=== PATIENT | female | born 1955 | race Caucasian/White ===

== ENCOUNTER 2020-07-09 06:47 | Day surgery (SDC) | payer MEDICARE, OTHER, SELFPAY ==
[2020-07-07 13:06] VITALS: BMI 23.8
--- NOTE | 2020-07-08 08:35 | HO.ANESPROP2 ---
Documented by User: Ivy Malhotra 07/08/20 08:35 HPI - Anesthesia Eval Consult details Narrative: 65yo F for Colonoscopy PMFSH Past Medical History Medical History Anxiety and depression Asthma Barretts esophagus Hyperlipemia Osteoporosis Surgical History Surgical History H/O colonoscopy History of History of esophagogastroduodenoscopy (EGD) Hx of appendectomy Hx of cholecystectomy Hx of hysterectomy Social History Social History Smoking Status: Former smoker Smoking Quit Date: 30 yrs ago Second Hand Smoke Exposure: No Use of substances other than those prescribed or required for medical reasons: No Have you been hit, kicked, punched, or otherwise hurt by someone within the past year? If so, by whom?: No Advance Directives: No Advance Directives Information Provided: No Advance Directives on File: No Meds Allergies Allergy/AdvReac Type Severity Reaction Status Date / Time simvastatin [From Zocor] Allergy muscle Verified 07/07/20 13:03 aches, flu like symptoms tetanus immune globulin Allergy Rash, Fever Verified 07/07/20 13:03 Home Medications Medication Instructions Recorded Confirmed Type albuterol sulfate 2 puff PO Q4H PRN 07/07/20 07/07/20 History cyclosporine [Restasis] 1 drp OPHTHALMIC (EYE) Q12H 07/07/20 07/07/20 History fluticasone furoate-vilanterol 1 puff PO DAILY 07/07/20 07/07/20 History [Breo Ellipta] ibuprofen [Advil] 200 mg PO Q6H PRN 07/07/20 07/07/20 History multivitamin 1 tab PO DAILY 07/07/20 07/07/20 History omeprazole 1 cap PO DAILY PRN 07/07/20 07/07/20 History sertraline 1 tab PO DAILY 07/07/20 07/07/20 History Exam Exam Date and Time: July 08, 2020 0835 Height,Weight and Vital Signs: Height 5 ft 7 in Weight 68.946 kg Assessment and Plan Assessment Anesthesia Assessment: Chart Reviewed Documented by User: Sariah Painting 07/09/20 08:08 [facility] Past Medical History Medical History Anxiety and depression Asthma Barretts esophagus Hyperlipemia Osteoporosis Surgical History Surgical History H/O colonoscopy History of History of esophagogastroduodenoscopy (EGD) Hx of appendectomy Hx of cholecystectomy Hx of hysterectomy Social History Social History Smoking Status: Former smoker Smoking Quit Date: 30 yrs ago Second Hand Smoke Exposure: No Use of substances other than those prescribed or required for medical reasons: No Have you been hit, kicked, punched, or otherwise hurt by someone within the past year? If so, by whom?: No Advance Directives: No Advance Directives Information Provided: No Advance Directives on File: No Meds Allergies Allergy/AdvReac Type Severity Reaction Status Date / Time simvastatin [From Zocor] Allergy muscle Verified 07/07/20 13:03 aches, flu like symptoms tetanus immune globulin Allergy Rash, Fever Verified 07/07/20 13:03 Home Medications Medication Instructions Recorded Confirmed Type albuterol sulfate 2 puff PO Q4H PRN 07/07/20 07/07/20 History cyclosporine [Restasis] 1 drp OPHTHALMIC (EYE) Q12H 07/07/20 07/07/20 History fluticasone furoate-vilanterol 1 puff PO DAILY 07/07/20 07/07/20 History [Breo Ellipta] ibuprofen [Advil] 200 mg PO Q6H PRN 07/07/20 07/07/20 History multivitamin 1 tab PO DAILY 07/07/20 07/07/20 History omeprazole 1 cap PO DAILY PRN 07/07/20 07/07/20 History sertraline 1 tab PO DAILY 07/07/20 07/07/20 History Exam Airway Mallampati Class: I TM Dist: >3cm Neck ROM: Full Denture: Upper Partial: Lower Loose/Missing/Broken Teeth: No Heart: RRR Lungs: CTA Assessment and Plan Assessment Anesthesia Assessment: Anesthesia Plan Discussed and Chart Reviewed Final Anesthetic Review NPO: Yes ASA Class: II Final Preanesthetic Review: Meds/Allgs Chart Reviewed, Consent Obtained/Reviewed and Anes Risks/Benef Reviewed Patient Risk: Intermediate Procedure Risk: Low Anesthetic Plan Anesthetic Plan: MAC: Disposition: Standard PACU
[2020-07-09 07:01] VITALS: BP 125/71; PULSE 70; RESP 18; TEMP 36.6; O2SAT 95
[2020-07-09] MEDS: Lactated Ringers 1,000 ML 100 ML IVCONT (07:13)
--- NOTE | 2020-07-09 08:01 | MHC.SHP ---
Pre-Procedural Eval Section A The patient is an INPATIENT: No Changes since office visit: No Cold of Flu in the past 2 weeks, No New Medical Problems, No Changes in Medication and No Patient answered all questions The History & Physical has been completed within 30 days and I have reviewed it.: Yes Section B Chief Complaint: screening Allergies: Allergies Allergy/AdvReac Type Severity Reaction Status Date / Time simvastatin [From Zocor] Allergy muscle Verified 07/07/20 13:03 aches, flu like symptoms tetanus immune globulin Allergy Rash, Fever Verified 07/07/20 13:03 Plan Patient has been examined and remains a candidate for the planned procedure
--- NOTE | 2020-07-09 08:34 | PM.OP ---
Brief Operative Note Date of procedure: 07/09/20 Pre-op diagnosis: screening Post-op diagnosis: same Procedure: colonoscopy Surgeon: Yoseph Suarez Anesthesia: MAC Estimated blood loss (mL): 0 Pathology: none sent Condition: stable Disposition: PACU
[2020-07-09 08:46] VITALS: BP 109/59; PULSE 66; RESP 16; TEMP 35.9; O2SAT 99
[2020-07-09 08:53] VITALS: BP 111/61; PULSE 60; RESP 16; O2SAT 97
--- NOTE | 2020-07-09 09:10 | OP_ITS ---
SURGEON: Yoseph Suarez MD INDICATIONS: Colon cancer screening and prior history of adenomatous colon polyps. PREOPERATIVE DIAGNOSIS: POSTOPERATIVE DIAGNOSIS: PROCEDURE PERFORMED: ESTIMATED BLOOD LOSS: COMPLICATIONS: ANESTHESIA: ASSISTANTS: SPECIMENS: PROCEDURE: Colonoscopy to the terminal ileum. MEDICATIONS: Monitored anesthesia care. DESCRIPTION OF PROCEDURE: History and physical performed. The risks and benefits of the procedure were explained to the patient. Informed consent was obtained. The patient was placed in the left lateral decubitus position. A digital rectal exam was performed and was found to be normal. The Olympus pediatric video colonoscope was introduced into the rectum and advanced to the cecum without difficulty. The cecum was identified by transillumination, palpation, and identification of ileocecal valve. Examination was performed. The scope was removed. She tolerated the procedure well and was taken to recovery area in stable condition. FINDINGS: The terminal ileum was normal. The visualized colonic mucosa was within normal limits without evidence of masses or ulcers. No polyps were identified. There was some liquid and undigested food limiting the sensitivity examination for detection of small polyps. This was washed and suctioned. No polyps were identified. Retroflexed examination was normal. IMPRESSION: Negative screening colonoscopy. RECOMMENDATION: 1. Follow up as needed. 2. Repeat colonoscopy is recommended in 5 years due to prior history. MD RIP Moya/JB / [id number]
--- NOTE | 2020-07-09 09:26 | HO.POSTANES ---
Post Anesthesia Evaluation Post Anesthesia Evaluation Vital Signs: Vital Signs Temp Pulse Resp BP Pulse Ox 07/09/20 08:53 97.9 F 60 16 111/61 97 07/09/20 08:46 96.6 F L 66 16 109/59 L 99 07/09/20 07:01 97.9 F 70 18 125/71 95 Anesthesia: Monitored Mental Status: Awake Pain Control: Satisfactory Nausea/Vomiting: None Hydration: Adequate Anesthesia-Related Issues: No Anes. Related Issues
== END 2020-07-09 09:46 | disposition home or self-care (01) ==
PROVIDERS: PCP Internal Medicine; Visit Provider Internal Medicine Gastroenterology
PROC: 0DJD8ZZ Inspection of Lower Intestinal Tract, Via Natural or Artificial Opening Endoscopic (ICD-10-PCS; CPT 45378; principal; 2020-07-09 08:10)
DX: Z12.11 Encounter for screening for malignant neoplasm of colon (principal); Z80.0 Family history of malignant neoplasm of digestive organs; Z86.010 Personal history of colon polyps; K22.70 Barrett's esophagus without dysplasia; K21.9 Gastro-esophageal reflux disease without esophagitis; J45.909 Unspecified asthma, uncomplicated; E78.5 Hyperlipidemia, unspecified; M81.0 Age-related osteoporosis without current pathological fracture; Z79.899 Other long term (current) drug therapy; Z79.51 Long term (current) use of inhaled steroids; Z90.49 Acquired absence of other specified parts of digestive tract; Z87.891 Personal history of nicotine dependence; Z79.1 Long term (current) use of non-steroidal anti-inflammatories (NSAID); Z88.8 Allergy status to other drugs, medicaments and biological substances
CPT/HCPCS: G0105

== ENCOUNTER 2024-10-14 09:27 | Day surgery (SDC) | payer MEDICARE, OTHER, SELFPAY ==
--- NOTE | 2024-10-13 09:06 | P.CONAN_ITS ---
Documented by User: Ivy Malhotra NP 10/13/24 09:06 HPI - Anesthesia Eval Consult details Narrative: 69yo F for Upper Endoscopy and Colonoscopy PMFSH Past Medical History Medical History Anxiety and depression Asthma Barretts esophagus Hyperlipemia Osteoporosis Surgical History Surgical History H/O colonoscopy History of History of esophagogastroduodenoscopy (EGD) Hx of appendectomy Hx of cholecystectomy Hx of hysterectomy Social History Social History Are you a primary sub acute care nurse to a significant other at home: No Do you presently have visiting nurse or other home services: No Patient Tobacco Use Status: Former Tobacco user Second Hand Smoke Exposure: No Have you been hit, kicked, punched, or otherwise hurt by someone within the past year? If so, by whom?: No Are you DNR?: No Advance Directives: No Advance Directives Information Provided: Yes Recently lost weight without trying: No Nutrition Risks: No Nutritional Risk Meds Allergies Allergy/AdvReac Type Severity Reaction Status Date / Time simvastatin [From Zocor] Allergy muscle Verified 10/14/24 10:27 aches, flu like symptoms tetanus immune globulin Allergy Rash, Fever Verified 10/14/24 10:27 Home Medications ?Medication ?Instructions ?Recorded ?Confirmed ?Last Taken ?Type albuterol sulfate 90 mcg/actuation 2 puff PO Q4H PRN Wheezing 07/07/20 10/14/24 Unknown History aerosol inhaler cyclosporine 0.05 % eye drops in a 1 drp ophthalmic (eye) Q12H 07/07/20 10/14/24 Unknown History dropperette (Restasis) fluticasone furoate 200 1 puff PO DAILY 07/07/20 10/14/24 07/09/20 History mcg-vilanterol 25 mcg/dose inhalation powder (Breo Ellipta) ibuprofen 200 mg tablet (Advil) 200 mg PO Q6H PRN Pain 07/07/20 10/14/24 Unknown History multivitamin 1 tab PO DAILY 07/07/20 10/14/24 Unknown History omeprazole 20 mg capsule,delayed 1 cap PO DAILY PRN acid reflux 07/07/20 10/14/24 Unknown History release sertraline 100 mg tablet 1 tab PO DAILY 07/07/20 10/14/24 Unknown History Assessment and Plan Assessment Anesthesia Assessment: Chart Reviewed Documented by User: Jaden Miner MD 10/14/24 11:55 PMF Past Medical History Medical History Anxiety and depression Asthma Barretts esophagus Hyperlipemia Osteoporosis Family History Family history of problems with anesthesia: No Surgical History Surgical History H/O colonoscopy History of History of esophagogastroduodenoscopy (EGD) Hx of appendectomy Hx of cholecystectomy Hx of hysterectomy History of Problems with Anesthesia: No Social History Social History Are you a primary sub acute care nurse to a significant other at home: No Do you presently have visiting nurse or other home services: No Patient Tobacco Use Status: Former Tobacco user Second Hand Smoke Exposure: No Have you been hit, kicked, punched, or otherwise hurt by someone within the past year? If so, by whom?: No Are you DNR?: No Advance Directives: No Advance Directives Information Provided: Yes Recently lost weight without trying: No Nutrition Risks: No Nutritional Risk Meds Allergies Allergy/AdvReac Type Severity Reaction Status Date / Time simvastatin [From Zocor] Allergy muscle Verified 10/14/24 10:27 aches, flu like symptoms tetanus immune globulin Allergy Rash, Fever Verified 10/14/24 10:27 Home Medications ?Medication ?Instructions ?Recorded ?Confirmed ?Last Taken ?Type albuterol sulfate 90 mcg/actuation 2 puff PO Q4H PRN Wheezing 07/07/20 10/14/24 Unknown History aerosol inhaler cyclosporine 0.05 % eye drops in a 1 drp ophthalmic (eye) Q12H 07/07/20 10/14/24 Unknown History dropperette (Restasis) fluticasone furoate 200 1 puff PO DAILY 07/07/20 10/14/24 07/09/20 History mcg-vilanterol 25 mcg/dose inhalation powder (Breo Ellipta) ibuprofen 200 mg tablet (Advil) 200 mg PO Q6H PRN Pain 07/07/20 10/14/24 Unknown History multivitamin 1 tab PO DAILY 07/07/20 10/14/24 Unknown History omeprazole 20 mg capsule,delayed 1 cap PO DAILY PRN acid reflux 07/07/20 10/14/24 Unknown History release sertraline 100 mg tablet 1 tab PO DAILY 07/07/20 10/14/24 Unknown History Exam Airway Mallampati Class: II TM Dist: >3cm Neck ROM: Full Denture: Upper and Lower Heart: ok Lungs: ok Assessment and Plan Assessment Anesthesia Assessment: Anesthesia Plan Discussed Final Anesthetic Review Family History of Problems with Anesthesia: No History of Problems with Anesthesia: No NPO: Yes ASA Class: II Final Preanesthetic Review: No Changes in Pt Med Stat, Meds/Allgs Chart Reviewed, Consent Obtained/Reviewed and Anes Risks/Benef Reviewed Patient Risk: Low Procedure Risk: Intermediate Anesthetic Plan Anesthetic Plan: Agree w/ Assess. and Plan and TIVA Disposition: Standard PACU
--- OUTSIDE RECORDS SUMMARY | 2024-10-14 09:57 | XMS_ITS | Data Portability ---
Author Organization [place] [facility], [facility] Address [address] [place] [id number] Care Team Providers Care Master Certified Rv Technician Name Role Phone RENETTA LYNCH Primary Care Provider Assessment Encounter Date Assessment Date Assessment LastModified by Organization Details LastModified Time 11/21/2021 11/21/2021 Overview/History : 66 yo f new to and this provider with a PMH of asthma and anxiety presents with new onset of chills and and vomiting 3 days ago for 1 day the following day she began to feel better but she started with nausea and diarrhea. She has been able to tolerate fluids and crackers overall. Today she has a headache, body aches and nausea. Negative rapid COVID 19 test today. Using Tylenol for headache and body aches with good effect. Exam: VSS Constitutional: healthy-appearin g, well-nourished, well-developed. NAD Psychiatric: Good judgement. Active and alert, normal mood, normal affect Head: normocephalic, atraumatic Eyes: onjunctivae is non-injected, no discharge, no pallor. Sclerae is non-icteric. Peripheral vision grossly intact, acuity grossly intact ENMT: Ears: no lesions on external ear, EACs clear, TMs clear Nose: no lesions on external nose, nares patent, nasal passages clear, no sinus tenderness, no nasal discharge. Oropharynx: moist mucous membranes, no erythema, no exudates, tonsils not enlarged. Pulmonary: No dyspnea. LSCTA no wheezing, no rales/crackles, no rhonchi Cardiovascular: RRR, normal S1, normal S2, no murmurs, no rubs, no gallops Gastrointestinal : bowel sounds normal. Abdomen is soft, non-distended, no tenderness, no guarding, no rebound tenderness, no masses Musculoskeletal: Normal tone. Normal movement of all extremities, no contractures, no bony abnormalities, no malalignment. No cyanosis, no edema Neurologic: A&O x 3 recent and remote memory intact. Cranial nerves II-XII Intact, normal speech without dysarthria. 5/5 gross motor strength Skin: no rash, no lesions, good turgor, no jaundice DDx considered, but not limited to: viral gastroenteritis, bowel obstruction, cholecystitis, COVID-19 This patient presents with symptoms consistent with viral gastroenteritis. PE does is not reveal any pain or tenderness of the abdomen thus there is low suspicion for bowel obstruction or cholecystitis at this time. Her symptoms may be attributed COVID 19 and will collect a swab for PCR testing since she performed a home test today that was negative. She is able to tolerate PO fluids and is most bothered by continued nausea. Will plan to treat nausea and have patient f/u with PCP. Work-up: COVID-19 PCR -PENDING Plan/Discussion: Advised patient of new Rx ondansetron 2 tabs three times a day as needed for nausea first dose given on scene. Advised patient a provider will provide COVID-19 results when complete. Advised patient to follow up with PCP in 1-2 days. Advised patient if unable to tolerate fluids contact or be evaluated in the ER. Proper Personal Protective Equipment (PPE), including gloves, eye protection and masks were donned and doffed appropriately and all equipment cleaned using approved technique with germicidal disposable wipes prior to and after care of this patient according to [facility]'s infection prevention protocols. [email or web address] Not available 11/22/2021 01:02:29 Plan of Treatment Reminders Order Date Submit Date Provider Last Modified By Organization Details Last Modified Time Details Appointments None recorded. Lab unlisted lab - covid-19 (novel coronavirus ) PCR 2021 [address] [place] [facility], [address] [place], [address], 15:20:21 Referral None recorded. Procedures None recorded. Surgeries None recorded. Imaging None recorded. Medication Orders ondansetron 4 mg disintegrat ing tablet 2021 022 [id number], [address] [place], [address], 00:09:57 Patient TargetsNo targets recorded. Patient Instructions Encounter Date Encounter Id Patient Instructions Last Modified By Organization Details Last Modified Time 11/21/2021 [id number] Acute Nausea and Vomiting/Diarrhea BASIC INFORMATION Acute nausea and vomiting often start suddenly, worsen quickly, and last a few hours to 24 hours. Nausea and vomiting most often occur together, although they can occur alone. Cases of acute nausea and vomiting are often from gastrointestinal viruses such as norovirus, rotavirus and influenza. Less often it can be caused by toxins released from food that ? goes bad? as well as some types of bacteria and parasites. Diarrhea can also occur. Your nurse practitioner will conduct a careful history to help determine if you have one of the more serious causes. The cause of your nausea and vomiting may be unknown. INSTRUCTIONS Medicines: 1) Anti-nausea: You may have been given a prescription for an anti nausea medicine such as Zofran, Phenergan or Compazine. These can be used every 6-8 hours to help prevent nausea and vomiting. They can make you sleepy, so do not drive after taking them. Be sure to read all of the drug information from the pharmacy. 2) Tylenol: Low grade fever is common with acute nausea and vomiting. You may use Tylenol, per the recommended dosing on the label, to help control fever. If you have liver disease, do not use Tylenol. Ask your TRAINING TECHNICIAN how to address fever if you are concerned about Tylenol use. 3) Anti-diarrheal medicines: These are available [id number]-[id number], but in some cases are not recommended and can even worsen some cases of intestinal problems. Ask your TRAINING TECHNICIAN if you should use them. In children under 12, the only anti-diarrheal that should be considered is Kaopectate. Diet: 1) For the next 12-24 hours, take clear liquids only. No dairy and no caffeinated beverages. After you have not vomited for a complete hour (either with or without the help of the anti-nausea medicine), begin by taking one tablespoon of clear liquid every 15 minutes for one hour. If you are able to tolerate this, you may increase the amount to 2 tablespoons every hour for the next 2 hours. 2) Clear liquids such as gatorade, pedialyte or broth are recommended because of the electrolytes and sugars that will help replenish the losses from vomiting and diarrhea. 3) If you are able to tolerate clear liquids as instructed above, you may begin to take a bland diet. Plain pasta/noodles or toast are suggestions. If you have had diarrhea, bananas, rice and applesauce are suggested as these can help make the stools more solid. Avoid greasy, fatty or fried foods FOLLOW UP You should make an appointment to see your primary care provider within 24 hours or sooner for worsening condition as described below. If you do not have a primary care doctor, you should follow up with one of the PCP suggestions from [facility]. SEEK CARE IMMEDIATELY IF: 1) You are still unable to tolerate any oral intake after 24 hours 2) You have blood in your vomit or stool 3) You develop severe abdominal pain that does not go away after an episode of vomiting or diarrhea 4) You have severe dizziness, heart palpitations or are passing out 5) You develop severe muscle cramps or weakness 6) You have not made urine in over 24 hours If you develop any new or worsening symptoms and need after hours care, please go to nearest ER and/or call 911. If you have additional concerns or develop a change in your condition between 8am-10pm, please call [facility] at [phone] to help navigate your care. [email or web address] Not available 11/21/2021 16:24:12 Reason for Referral None Reported. Results Created Date Observation Date Name Description Value Unit Range Abnormal Flag Note LastModifiedBy Organization Detail LastModifiedTime 11/22/19 22 11/22/2021 COVID -19 (NOVE L CORON AVIRU S) PCR covid-19 PCR result (neg) NEGAT BEBE 2019- novel Coron aviru s (2018 -nCoV ) not detec mikey by RT-PC R. Note: If clini raj suspi cion for COVID -19 is high, mariia nue to maint ain preca ution s and consi katie repea t testi ng. Resul t repor mikey to the [facility]. All test resul ts must be corre lated with clini raj findi ngs. This test has been autho rized by the FDA under an Emerg ency Use Autho rizat ion (EUA) for use by autho rized labor atori es. Testi ng perfo rmed on the [facility] Pant er Aptim a assay utili zing trans cript ion-m ediat ed ampli ficat ion (TMA) . Not Available [facility] [address] [place], [address], 11/22/2021 15:20:21 11/22/19 22 11/22/2021 COVID -19 (NOVE L CORON AVIRU S) PCR covid-19 PCR specimen source NASAL Not Available [facility] [address] [place], [address], 11/22/2021 15:20:21 Result Notes None recorded. Procedures Surgical History Date Name Laterality Status Provider Name and Address Organization Details Recorded Time section completed Nancy carey, TRAINING TECHNICIAN [address], [place], [address], [place] [facility] 11/21/2021 16:07:03 Total Hysterectomy completed Nancy genao NP [address], [place], [address], [place] [facility] 11/21/2021 16:07:18 Appendectomy completed Nancy Lentz, TRAINING TECHNICIAN [address] [place], [address], [place] [facility] 11/21/2021 16:07:25 Cholecystectomy completed Nancy miller, TRAINING TECHNICIAN [address] [place], [address], [place] [facility] 11/21/2021 16:07:37 inguinal herniorrhaphy completed Nancy Lentz NP [address] [place], [address], [place] [facility] 11/21/2021 16:07:49 Imaging Results None recorded. Procedure Notes None recorded. Medical Equipment None Reported. Allergies No known drug allergies Medications Name Sig Start Date Stop Date Status Note LastModified by Organization Details LastModified Time meloxicam 15 mg tablet TAKE 1 TABLET BY MOUTH EVERY DAY NEEDED FOR MODERATE PAIN, TAKE WITH FOOD 11/21 completed Not Available Not Available Not Available prednisone 20 mg tablet TAKE 2 TABLETS BY MOUTH EVERY DAY FOR 5 DAYS 11/21 completed Not Available Not Available Not Available sertraline 100 mg tablet TAKE 1 TABLET BY MOUTH EVERY DAY active Not Available Not Available No t Available amoxicillin 500 mg tablet TAKE 1 TABLET BY MOUTH 4 TIMES A DAY UNTIL GONE 11/21 completed Not Available Not Available Not Available dicyclomine 20 mg tablet TAKE 1 TABLET BY MOUTH 2 TO 4 TIMES DAILY as needed active Not Available Not Available No t Available omeprazole 20 mg capsule,del ayed release TAKE 1 CAPSULE BY MOUTH EVERY DAY NEEDED FOR REFLUX active Not Available Not Available No t Available albuterol sulfate HFA 90 mcg/actuati on aerosol inhaler INHALE 2 PUFFS BY MOUTH EVERY 4 HOURS NEEDED active Not Available Not Available No t Available ondansetron 4 mg disintegrat ing tablet Place 2 tablets 3 times a day by transling ual route as needed for 5 days. 2021 active Not Available Not Available Not Avai lable Restasis 0.05 % eye drops in a dropperette INSTILL 1 DROP IN BOTH EYES TWICE A DAY active Not Available Not Available No t Available tizanidine 2 mg capsule TAKE 1 TO 2 CAPSULES BY MOUTH 3 TIMES DAILY NEEDED FOR MUSCLE SPASM 11/21 completed Not Available Not Available Not Available multivitami n active Not Available Not Available Not Available Breo Ellipta 200 mcg-25 mcg/dose powder for inhalation INHALE 1 PUFF BY MOUTH EVERY DAY (RINSE MOUTH AFTER USE) active Not Available Not Available No t Available baclofen 5 mg tablet TAKE 1 TABLET BY MOUTH 3 TIMES A DAY 11/21 completed Not Available Not Available Not Available Vitals Date Recorded Heart rate Respiratory rate Oxygen saturation Oxygen saturation in Arterial blood by Pulse oximetry Systolic blood pressure Diastolic blood pressure Provider Name and Address Organization Details Last Updated DateTime 2 72 /min 16 /min 97 % 97 % 122 mm[Hg] 86 mm[Hg] Not Available [facility] 16:09:28 Date Recorded Body temperature Provider Name a nd Address Organization Details Last Updated DateTime 11/21/2021 97.3 [degF] Not Available [facility] 2021 16:09:27 Social History Question Answer Notes LastModified by Organizat ion Details LastModified Time Tobacco Smoking Status Former Smoker Nancy Lentz NP [address], [place], [address], [place] [facility] 11/21/2021 16:06:08 What Is Your Level Of Alcohol Consumption? None Information not available 11/21/2021 Within The Past 12 Months, Has It Happened That The Food You Bought Just Didn't Last And You Didn't Have Money To Get More. No Information not available 11/21/2021 Within The Past 12 Months, Have You Worried That Your Food Would Run Out Before You Got Money To Buy More. No Information not available 11/21/2021 Fall Risk: Do You Feel Unsteady When Standing Or Walking? No Information not available 11/21/2021 We Know That How And When People Interact With Friends And Family Can Be Very Different From Person To Person. How Often Do You Have The Opportunity To See Or Talk To People That You Care About And Feel Close To? (Ex: Talking To Friends On The Phone Or Visiting Friends Or Family Or Going To [employer] Or Club Meetings) 3 Or 4 Times Per Week Information not available 11/21/2021 Excessive Alcohol Or Drug Use No Information not available 11/21/2021 Does This Patient Have A PCP? Yes Information not available 11/21/2021 We Know From Many Of Our Patients That Covering All Of Their Costs Can Be Difficult At Times. This Can Cause Stress And Impact Health. In The Past Year, Have You Been Unable To Get Any Of The Following When It Was Really Needed? No Information not available 11/21/2021 What Is Your Housing Situation Today? I Have Housing Lives With Son Information not available 11/21/2021 Would You Like Help Connecting To Resources? None Information not available 11/21/2021 Do You Use Any Illicit Or Recreational Drugs? No Information not available 11/21/2021 How Many Years Have You Smoked Tobacco? 20 Information not available 11/21/2021 Do You Or Have You Ever Used Any Other Forms Of Tobacco Or Nicotine? No Information not available 11/21/2021 Sex: Unknown Functional Status None recorded. Mental Status None recorded. Family History Relationship Description Onset Age of this Age Resolved Age Notes LastModified by Organization Details LastModified Time Mother Family history of colorectal cancer lnovia Not available 2021 16:05:39 Father Malignant tumor of lung [email or web address] Not available 03/14/ 2022 16:05:51 Medical History Condition Response Asthma Y Gynecological HistoryNo gynecological history recorded. Obstetrics History GPAL:G 0 P 0 0 0 0 Past Encounters Encounter ID Performer Location Encounter Start Date Encounter Closed Date Diagnosis/Indication Diagnosis SNOMED-CT Code Diagnosis ICD10 Code Diagnosis Note [id number] aNncy Lentz NP [facility] [address] [place] [address] 11/21/2021 15:54:50 11/25/2021 13:52:48 Viral gastroenteritis 732883076 A08.4 Health Concerns Section Related Observation LastModified by Organization Detai ls LastModified Time None Recorded Concern Status LastModified by Organization Details LastModified Time None Recorded Advance Directives Directive None Recorded Payers Encounter Date Sequence Insurance Name Policy Number Policy Hernandez Covered Member ID Hernandez Member ID Guarantor Name 11/21/2021 1 MEDICARE B-[place]: PlanHQ SERVICES Mary Hutchins [id number] Mary Hutchins Notes Date Note Type Note Provider Name and Address Organization Details Recorded Time 11/21/2021 text/html 66 yo f with a PMH of asthma and anxiety had 1 days of chills and vomiting 3 days ago. She then started with nausea and diarrhea the following day. She has since been able to tolerate fluids and crackers today. Today she has a headache, body aches and nausea. Negative rapid COVID 19 test today. Using Tylenol for headache and body aches with good effect. Nancy Lentz NP [address], [place], [address], [place] [facility] 11/22/2021 01:02:45 OBGyn Episode No OBEpisode recorded.
--- OUTSIDE RECORDS SUMMARY | 2024-10-14 09:57 | XMS_ITS | Continuity of Care Document ---
Author Organization [facility] Address [address] [place] [address]- Care Team Providers Care Can Cleaner Name Role Phone Kendrick TALBERT, Dasha Desai Primary Care Physician [phone] Encounter [facility] Date(s): 08/26/24 - 09/25/24 [facility] [address], [place] [address] Encounter Type: Triage Allergies, Adverse Reactions, Alerts Substance Criticality Severity Reaction Reaction Severity Status Zocor muscle aches Active tetanus immune globulin rash/cellulitis/flu like symptoms Active Immunizations Given and Recorded Vaccine Date Status Refusal Reason RSV vaccine preF3, recombinant 08/20/23 Recorded influenza virus vaccine, inactivated 06/07/23 Linus rded influenza virus vaccine, inactivated 07/03/22 Linus rded influenza virus vaccine, inactivated 06/29/21 Linus rded influenza virus vaccine, inactivated 05/22/19 Give n influenza virus vaccine, inactivated 06/10/17 Linus rded influenza virus vaccine, inactivated 1 06/29/16 Gi arun influenza virus vaccine, inactivated 06/22/15 Give n influenza virus vaccine, inactivated 06/25/12 Linus rded SARS-CoV-2(COVID-19)mRNA-LNP vac([id number]) 06/07/23 Recorded [id number] 12y+ bivalent booster vax 07/03/22 Recorded tetanus/diphtheria/pertussis, acel(Tdap) 02/25/22 Recorded SARS-CoV-2 (COVID-19) mRNA BNT-162b2 vac 06/14/21 Recorded SARS-CoV-2 (COVID-19) mRNA BNT-162b2 vac 4/3/21 Recorded SARS-CoV-2 (COVID-19) mRNA BNT-162b2 vac 11/20/20 Recorded pneumococcal 23-valent vaccine 03/27/18 Given tetanus-diphtheria toxoids (Td) 12/17/08 Recorded 1Result Comment: [06/29/2016] seqirus Medications Albuterol (Eqv-ProAir HFA) 90 mcg/inh inhalation aerosol 2 puffs, Inhalation, Every 6 hours, PRN NEEDED FOR SHORTNESS OF BREATH OR WHEEZING, # 17 each, 6Refills, Maintenance, 02/29/24 7:55:00 AM EDT, [id number], 50, INHALE 2 PUFFS BY MOUTH EVERY 6 HOURS NEEDED FOR SHORTNESS OF BREATH OR WHEEZING, 170, cm, 12/20/23 9:32:00 EDT, Height, 66.1, kg, 09/05/23 13:52:00 EST, Dry Weight Start Date: 02/29/24 Status: Ordered Quantity: 17.0 Unit: each Repeat number: 1 Azithromycin 5 Day Dose Pack 250 mg oral tablet 1 pack/packet, By Mouth, Once, # 6 tablet, 0 Refills, Soft Stop, 08/23/24 9:42:00 AM EST, Tablet, [id number], Partial fill upon patient request if the prescription is for a schedule II opioiddrug., 170, cm, 08/23/24 8:56:00 EST, Height, 68.6, kg, 08/01/24 14:19:00 EST, Dry Weight Start Date: 08/23/24 Status: Ordered Quantity: 6.0 Unit: tablet Repeat number: 1 Boniva 3 mg/3 mL intravenous solution IV Infusion, Every 3 months, PER DR YADAV, 0 Refills, Maintenance, 03/03/20 10:15:00 AM EDT Start Date: 03/03/20 Status: Ordered Repeat number: 1 Breo Ellipta 200 mcg-25 mcg/inh inhalation powder 1 puffs, Inhalation, Daily, # 60 each, 11 Refills, Maintenance, 03/07/24 10:22:00 AM EDT, [id number], 30, INHALE 1 PUFF BY MOUTH DAILY, 170, cm, 12/20/23 9:32:00 EDT, Height, 66.1, kg, 09/05/23 13:52:00 EST, Dry Weight Start Date: 03/07/24 Status: Ordered Quantity: 60.0 Unit: each Repeat number: 1 dicyclomine 20 mg oral tablet 1 tablet = 20 mg, By Mouth, 2 times a day, ONCE OR TWICE A DAY NEEDED, # 180 tablet, 1 Refills, Maintenance, 11/04/19 1:30:00 PM EST, [id number], 170.18, cm, 08/29/19 20:40:00 EST, Height, 74.7, kg, 08/29/19 20:40:00 EST, Dry Weight Start Date: 11/04/19 Stop Date: 05/02/20 Status: Ordered Quantity: 180.0 Unit: tablet Repeat number: 2 Flonase Allergy Relief 50 mcg/inh nasal spray 1 sprays = 50 mcg, Nares, Both, Daily, shake well before using, # 9.9 mL, 0 Refills, Maintenance, 08/25/24 11:14:00 AM EST, [place], [id number], Partial fill upon patient request if the prescription is for a schedule II opioid drug., 168, cm, 08/25/24 10:12:00 EST, Height, 66.8, kg, 08/25/24 1 0:12:00 EST, Dry Weight Start Date: 08/25/24 Status: Ordered Quantity: 9.9 Unit: mL Repeat number: 1 gabapentin 300 mg oral capsule 300 mg, 1, capsule, By Mouth, Daily at bedtime, # 30 capsule, Refills 1, Tot. Refills 1, Maintenance, 07/01/24 4:38:00 PM EDT, Route to Pharmacy Electronically, [id number], Partial fill upon patient request if the prescription is for a schedule II opioid drug., 170, cm, 05/29/24 10:10:00 EDT, Height, 66.1, kg, 09/05/23 13:52:00 EST, Dry Weight Start Date: 07/01/24 Stop Date: 08/30/24 Status: Ordered Quantity: 30.0 Unit: capsule Repeat number: 2 lansoprazole 30 mg oral enteric coated capsule 1 capsule = 30 mg, By Mouth, Daily, Maintenance, 09/05/23 4:05:00 PM EST, [facility], Partial fill upon patient request if the prescription is for a schedule II opioid drug. Start Date: 09/05/23 Status: Ordered Repeat number: 1 Multivitamin By Mouth, Daily, 0 Refills, Maintenance, 08/30/23 3:18:00 PM EST, Partial fill upon patient requestif the prescription is for a schedule II opioid drug. Start Date: 08/30/23 Status: Ordered Repeat number: 1 Restasis 0.05% ophthalmic emulsion 1 drops, Eyes, Both, 2 times a day, 0 Refills, Maintenance, 12/22/13 10:46:31 PM EDT Start Date: 12/22/13 Status: Ordered Repeat number: 1 sertraline 100 mg oral tablet 1 tablet = 100 mg, By Mouth, Daily, for 90 days, # 90 tablet, 1 Refills, Hard Stop 02/21/25 4:44:00 PM EDT, 08/25/24 4:44:00 PM EST, Tablet, [id number], 170, cm, 05/29/24 10:10:00 EDT, Height,66.1, kg, 09/05/23 13:52:00 EST, Dry Weight Start Date: 08/25/24 Stop Date: 02/21/25 Status: Ordered Quantity: 90.0 Unit: tablet Repeat number: 2 Problem List Condition Confirmation Course Effective Dates Status H ealth Status Informant Allergic rhinitis Confirmed Active Asthma Confirmed Active Depression Confirmed Active Dry eyes Confirmed Active FHx: colon cancer Confirmed Active Esophageal reflux Confirmed Active Generalized anxiety disorder Confirmed Active S/P bilateral salpingo-oophorectomy Confirmed Active Bilateral bunions Confirmed Active S/p appendectomy Confirmed Active S/p cholecystectomy Confirmed Active S/P total hysterectomy Confirmed Active Hyperlipidemia Confirmed Active Insomnia Confirmed Active Irritable bowel syndrome Confirmed Active Arthralgia Confirmed Active Osteoporosis Confirmed Active Palpitations Confirmed Active Medicare annual wellness visit, subsequent Confirmed Active Pneumonia Confirmed Active Right sided sciatica Confirmed Active Seborrheic keratosis Confirmed Active Stress Confirmed Active Varicose vein of leg Confirmed Active Social History Social History Type Response Smoking Status Former smoker; Tobac co user in household: No; Other: quit 25 years ago; entered on: 03/23/15 Sex Female Sex Representation Female (finding) Implantable Device List Procedure Provider Procedure Date Device Type Site Repair Hernia Incisional Laparoscopic Cameron Vasquez MD, I 09/05/23 Unknown Abdomen Device Identifier Serial Number Lot or Batch Number Manufacturing Date Expiration Date Distinct Identification Code MRI Safety Implantable Status Assigning Authority [id number] Unknown Unknown Unknown 03/07/25 Unknown Unknown Active GS1 Procedure Provider Procedure Date Device Type Site Repair Hernia Incisional Laparoscopic Cameron Vasquez MD, I 09/05/23 Unknown Abdomen Device Identifier Serial Number Lot or Batch Number Manufacturing Date Expiration Date Distinct Identification Code MRI Safety Implantable Status Assigning Authority [id number] Unknown [id number] Unknown 03/07/24 Unknown Unknown Active GS1 Patient Care team information Care Team Personnel Name: Melody Her [place] Position: [facility] Office Staff Member Role: Primary Care Nurse Name: Julianne Neil RN Position: [facility] RN Member Role: Primary Care Nurse Name: Dasha Marks MD Position: [facility] Physician - Primary Care Member Role: PCP Address: [address] [place] [id number] Telecom: Name: Blanca Vergara RN Position: [facility] Onco RN Member Role: Primary Care Nurse Name: Pinky Ulrich RN Position: [facility] Onco RN Member Role: Primary Care Nurse Care Team Related Persons Name: ARI PEREZ Name: JOHAN PEREZ Insurance Providers Guarantor name: NUPUR ANA Health Plan Information #: 1 Payer: MEDICARE PART B OUTPT Member Number: NA Policy Number: NA Group Number: NA Health Plan Information #: 2 Payer: [facility] Member Number: NA Policy Number: NA Group Number: NA
[2024-10-14 10:25] VITALS: BMI 22.7
[2024-10-14] MEDS: Lactated Ringers 1,000 ML 100 ML IVCONT (10:30)
[2024-10-14 10:41] VITALS: BP 114/71; PULSE 75; RESP 18; TEMP 36.7; O2SAT 97
--- NOTE | 2024-10-14 11:21 | MHC.SHP ---
Pre-Procedural Eval Section A - 24 Hr Update-Section A only Date of Service: 10/14/24 The patient is an INPATIENT: No Changes since office visit: No Cold of Flu in the past 2 weeks, No New Medical Problems, No Changes in Medication and No Patient answered all questions The patient has been examined within 24 hours of the surgical procedure. The History & Physical has been completed within 30 days and I have reviewed it.: Yes Section B - Complete if H&P > 30 days Chief Complaint: Encounter for screening for malignant neoplasm of Allergies: Allergies Allergy/AdvReac Type Severity Reaction Status Date / Time simvastatin [From Zocor] Allergy muscle Verified 10/14/24 10:27 aches, flu like symptoms tetanus immune globulin Allergy Rash, Fever Verified 10/14/24 10:27 Plan I have reviewed the history and physical and performed a pertinent physical examination on my patient. No changes have occurred unless specified. Time Spent With Patient Time: Total time managing care of this patient today ____ minutes.
[2024-10-14 12:19] VITALS: BP 102/50; PULSE 63; RESP 16; TEMP 36.2; O2SAT 96
[2024-10-14 12:35] VITALS: BP 107/68; PULSE 69; RESP 20; TEMP 36.2; O2SAT 98
--- NOTE | 2024-10-14 13:56 | OP_ITS ---
DATE OF SERVICE: 10/14/2024 SURGEON: Yoseph Suarez MD INDICATIONS: 1. Rashid esophagus. 2. Colon cancer screening and family history of colon cancer. PREOPERATIVE DIAGNOSIS: POSTOPERATIVE DIAGNOSIS: PROCEDURE PERFORMED: Upper endoscopy with biopsy, colonoscopy to the terminal ileum with biopsy. ESTIMATED BLOOD LOSS: COMPLICATIONS: ANESTHESIA: Monitored anesthesia care. ASSISTANTS: SPECIMENS: DESCRIPTION OF PROCEDURE: A history and physical was performed. The risks and benefits of both the procedure were explained to the patient and informed consent was obtained. The patient was placed in the left lateral decubitus position. The Olympus video gastroscope was introduced into the esophagus, stomach, and duodenum. Examination was performed and the scope was removed. She was repositioned for colonoscopy. A digital rectal exam was performed and was found to be normal. The Olympus pediatric video colonoscope was introduced into the rectum and advanced to the cecum. The cecum was identified by transillumination, palpation, and identification of ileocecal valve. Examination was performed and the scope was removed. She tolerated both procedures well and was returned to recovery area in stable condition. FINDINGS: Upper endoscopy, esophagus: The esophagus showed a small area of Rashid esophagus with no raised areas or ulcerated lesions. This measured less than 2 cm. Biopsies were obtained from the EG junction and at 38 cm. Stomach: The stomach showed no evidence of masses, ulcers, or polyps. Duodenum: The bulb and 2nd portion were normal. Colonoscopy: There was some undigested food material in the cecum and right colon, which limited the sensitivity examination for detection of small polyps. This was washed and suctioned as best possible. In the right colon at approximately 70 cm, was a less than 5 mm sessile polyp, which was removed with biopsy forceps. No other polyps were identified. There was moderate diverticulosis involving the sigmoid. Retroflexed examination showed some small internal hemorrhoids. IMPRESSION: 1. Rashid esophagus. 2. Colon polyp. RECOMMENDATION: Follow up the biopsy results. MD RIP Moya/ANTONIETAL / [id number]
== END 2024-10-14 12:54 | disposition home or self-care (01) ==
PROVIDERS: PCP Internal Medicine; Visit Provider Internal Medicine Gastroenterology
PROC: (CPT 45380; principal; 2024-10-14 11:50)
DX: Z12.11 Encounter for screening for malignant neoplasm of colon (principal); Z86.0101 Personal history of adenomatous and serrated colon polyps; Z80.0 Family history of malignant neoplasm of digestive organs; D12.2 Benign neoplasm of ascending colon; K57.30 Diverticulosis of large intestine without perforation or abscess without bleeding; K64.8 Other hemorrhoids; K58.9 Irritable bowel syndrome, unspecified; K22.70 Barrett's esophagus without dysplasia; K21.9 Gastro-esophageal reflux disease without esophagitis; E78.5 Hyperlipidemia, unspecified; F41.8 Other specified anxiety disorders; J45.909 Unspecified asthma, uncomplicated; M81.0 Age-related osteoporosis without current pathological fracture; Z79.1 Long term (current) use of non-steroidal anti-inflammatories (NSAID); Z79.51 Long term (current) use of inhaled steroids; Z79.899 Other long term (current) drug therapy; Z88.7 Allergy status to serum and vaccine; Z88.8 Allergy status to other drugs, medicaments and biological substances; Z98.890 Other specified postprocedural states; Z87.891 Personal history of nicotine dependence
CPT/HCPCS: 45380; 43239; 88305; J2003; J2704; J3010